=== PATIENT | male | born 1995 | race African-American/Black ===

== ENCOUNTER 2018-01-15 10:55 | Emergency (ER) | payer OTHER, MEDICAID ==
[~2018-01-15] VITALS: Ht 175.3 cm; Wt 64.0 kg
[2018-01-15 16:04] VITALS: BP 136/86
== END 2018-01-15 16:05 | disposition home or self-care (01) ==
LOC: ER 13:41
DX: S05.12XA Contusion of eyeball and orbital tissues, left eye, initial encounter (principal); Y04.0XXA Assault by unarmed brawl or fight, initial encounter; Y93.89 Activity, other specified; Y92.018 Other place in single-family (private) house as the place of occurrence of the external cause
CPT/HCPCS: 70450; 70486; 99284